=== PATIENT | male | born 1975 | race Caucasian/White ===

== ENCOUNTER 2021-06-29 09:15 | Outpatient (RCR) | payer OTHER, SELFPAY ==
[2021-06-07 08:57] VITALS: BMI 38.4
[2021-06-07 09:08] VITALS: BMI 38.4
== END 2021-07-07 15:14 | disposition home or self-care (01) ==
LOC: ANHDMC 09:15
PROVIDERS: PCP Family Medicine; Visit Provider Family Medicine
DX: E11.9 Type 2 diabetes mellitus without complications (principal); Z71.3 Dietary counseling and surveillance; Z71.89 Other specified counseling
CPT/HCPCS: 97802; G0108

== ENCOUNTER 2021-12-01 08:57 | Outpatient (CLI) | payer OTHER, SELFPAY ==
[2021-12-01 20:06] LABS: Alanine Aminotransferase 33 U/L (6-50); Albumin Level 4.5 g/dL (3.5-5.1); Alkaline Phosphatase 76 U/L (38-126); Anion Gap 10 mmol/L (8-16); Aspartate Amino Transferase 46 U/L (17-59); Bilirubin,Total 0.5 mg/dL (0.2-1.3); Blood Urea Nitrogen 22 mg/dL (9-20); Calcium 9.4 mg/dL (8.4-10.2); Carbon Dioxide 30 mmol/L (22-30); Chloride 98 mmol/L (98-107); Cholesterol 163 mg/dL (0-200); Estimated Glomerular Filt Rate > 60; Glucose 133 mg/dL (65-110); HDL Direct 33 mg/dL; Potassium 4.3 mmol/L (3.4-5.0); Sodium 138 mmol/L (137-145); Triglycerides 134 mg/dL (<150)
[2021-12-01 20:17] LABS: LDL Cholesterol Direct 97 mg/dL
[2021-12-01 20:29] LABS: Hemoglobin A1C 6.8 % (<5.7)
[2021-12-01 21:35] LABS: Creatinine Urine 81.8 mg/dL
[2021-12-01 21:39] LABS: MALB Creatinine Ratio 15.6 mg/g (0-30); Microalbumin Urine Random 12.8 mg/L (0-16.7)
== END 2021-12-01 08:58 | disposition home or self-care (01) ==
LOC: ANHGOSHLAB 08:58
PROVIDERS: PCP Family Medicine; Visit Provider Family Medicine
DX: E11.9 Type 2 diabetes mellitus without complications (principal)
CPT/HCPCS: 36415; 80053; 80061; 82043; 82607; 83036

== ENCOUNTER 2022-06-14 10:32 | Outpatient (CLI) | payer OTHER, SELFPAY ==
[2022-06-14 19:48] LABS: Alanine Aminotransferase 43 U/L (6-50); Albumin Level 4.2 g/dL (3.5-5.1); Alkaline Phosphatase 71 U/L (38-126); Anion Gap 6 mmol/L (8-16); Aspartate Amino Transferase 38 U/L (17-59); Bilirubin,Total 0.6 mg/dL (0.2-1.3); Blood Urea Nitrogen 16 mg/dL (9-20); Calcium 8.7 mg/dL (8.4-10.2); Carbon Dioxide 30 mmol/L (22-30); Chloride 101 mmol/L (98-107); Cholesterol 188 mg/dL (0-200); Estimated Glomerular Filt Rate > 60; Glucose 123 mg/dL (65-110); HDL Direct 28 mg/dL; Potassium 4.3 mmol/L (3.4-5.0); Sodium 137 mmol/L (137-145); Triglycerides 172 mg/dL (<150)
[2022-06-14 19:58] LABS: LDL Cholesterol Direct 120 mg/dL
== END 2022-06-14 10:33 | disposition home or self-care (01) ==
LOC: ANHGOSHLAB 10:33
PROVIDERS: PCP Family Medicine; Visit Provider Family Medicine
DX: B35.1 Tinea unguium (principal); E11.9 Type 2 diabetes mellitus without complications
CPT/HCPCS: 36415; 80053; 80061; 82607; 83036

== ENCOUNTER 2022-11-09 09:16 | Outpatient (CLI) | payer OTHER, SELFPAY ==
[2022-11-09 19:14] LABS: Alanine Aminotransferase 36 U/L (6-50); Alkaline Phosphatase 82 U/L (38-126); Anion Gap 7 mmol/L (8-16); Aspartate Amino Transferase 30 U/L (17-59); Bilirubin,Total 0.3 mg/dL (0.2-1.3); Blood Urea Nitrogen 18 mg/dL (9-20); Calcium 8.8 mg/dL (8.4-10.2); Carbon Dioxide 28 mmol/L (22-30); Chloride 104 mmol/L (98-107); Cholesterol 185 mg/dL (0-200); Estimated Glomerular Filt Rate > 60; Glucose 145 mg/dL (65-110); HDL Direct 30 mg/dL; Potassium 4.1 mmol/L (3.4-5.0); Sodium 139 mmol/L (137-145); Triglycerides 131 mg/dL (<150)
[2022-11-09 19:24] LABS: LDL Cholesterol Direct 115 mg/dL
[2022-11-09 20:12] LABS: Hemoglobin A1C 7.6 % (<5.7)
== END 2022-11-09 09:17 | disposition home or self-care (01) ==
LOC: ANHGOSHLAB 09:22
PROVIDERS: PCP Family Medicine; Visit Provider Physician Assistant
DX: E11.42 Type 2 diabetes mellitus with diabetic polyneuropathy (principal); I10 Essential (primary) hypertension; E66.01 Morbid (severe) obesity due to excess calories; Z68.39 Body mass index [BMI] 39.0-39.9, adult
CPT/HCPCS: 36415; 80053; 80061; 83036

== ENCOUNTER 2023-03-28 09:38 | Outpatient (CLI) | payer OTHER, SELFPAY ==
[2023-03-28 15:18] LABS: Alanine Aminotransferase 63 U/L (6-50); Albumin Level 4.6 g/dL (3.5-5.1); Alkaline Phosphatase 87 U/L (38-126); Anion Gap 17 mmol/L (8-16); Aspartate Amino Transferase 68 U/L (17-59); Bilirubin,Total 0.6 mg/dL (0.2-1.3); Blood Urea Nitrogen 16 mg/dL (9-20); Calcium 9.4 mg/dL (8.4-10.2); Carbon Dioxide 19 mmol/L (22-30); Chloride 104 mmol/L (98-107); Cholesterol 194 mg/dL (0-200); Estimated Glomerular Filt Rate > 60; Glucose 156 mg/dL (65-110); HDL Direct 32 mg/dL; Sodium 140 mmol/L (137-145); Triglycerides 156 mg/dL (<150)
[2023-03-28 15:28] LABS: LDL Cholesterol Direct 119 mg/dL
[2023-03-28 17:22] LABS: Creatinine Urine 117.2 mg/dL
[2023-03-28 17:32] LABS: MALB Creatinine Ratio 54.3 mg/g (0-30); Microalbumin Urine Random 63.6 mg/L (0-16.7)
[2023-03-28 18:00] LABS: Hemoglobin A1C 8.1 % (<5.7)
== END 2023-03-28 09:39 | disposition home or self-care (01) ==
LOC: ANHGOSHLAB 09:39
PROVIDERS: PCP Family Medicine; Visit Provider Family Medicine
DX: E11.59 Type 2 diabetes mellitus with other circulatory complications (principal); E11.69 Type 2 diabetes mellitus with other specified complication; E66.9 Obesity, unspecified; I15.2 Hypertension secondary to endocrine disorders; E11.42 Type 2 diabetes mellitus with diabetic polyneuropathy; E66.01 Morbid (severe) obesity due to excess calories; I10 Essential (primary) hypertension
CPT/HCPCS: 36415; 80053; 80061; 82043; 82607; 83036; 84443

== ENCOUNTER 2023-10-03 09:39 | Outpatient (CLI) | payer OTHER, SELFPAY ==
[2023-10-03 23:43] LABS: Alanine Aminotransferase 50 U/L (6-50); Albumin Level 4.4 g/dL (3.5-5.1); Alkaline Phosphatase 67 U/L (38-126); Anion Gap 7 mmol/L (4-12); Aspartate Amino Transferase 48 U/L (17-59); Bilirubin,Total 0.7 mg/dL (0.2-1.3); Blood Urea Nitrogen 16 mg/dL (9-20); Calcium 9.2 mg/dL (8.4-10.2); Carbon Dioxide 26 mmol/L (22-30); Chloride 104 mmol/L (98-107); Cholesterol 180 mg/dL (0-200); Estimated Glomerular Filt Rate > 60; Glucose 128 mg/dL (65-110); HDL Direct 32 mg/dL; Potassium 4.3 mmol/L (3.4-5.0); Sodium 137 mmol/L (137-145); Triglycerides 155 mg/dL (<150)
[2023-10-03 23:53] LABS: LDL Cholesterol Direct 114 mg/dL
[2023-10-04 01:28] LABS: Hemoglobin A1C 7.3 % (<5.7)
[2023-10-04 13:13] LABS: Creatinine Urine 81.4 mg/dL
[2023-10-04 13:26] LABS: MALB Creatinine Ratio < 7.4 mg/g (0-30); Microalbumin Urine Random < 6.0 mg/L (0-16.7)
== END 2023-10-03 09:40 | disposition home or self-care (01) ==
LOC: ANHGOSHLAB 09:40
PROVIDERS: PCP Family Medicine; Visit Provider Family Medicine
DX: I15.2 Hypertension secondary to endocrine disorders (principal); E66.9 Obesity, unspecified; E11.59 Type 2 diabetes mellitus with other circulatory complications; E11.69 Type 2 diabetes mellitus with other specified complication
CPT/HCPCS: 36415; 80053; 80061; 82043; 82607; 83036

== ENCOUNTER 2024-04-08 08:33 | Outpatient (CLI) | payer OTHER, SELFPAY ==
[2024-04-08 13:16] LABS: Alanine Aminotransferase 44 U/L (6-50); Albumin Level 4.2 g/dL (3.5-5.1); Alkaline Phosphatase 85 U/L (38-126); Anion Gap 7 mmol/L (4-12); Aspartate Amino Transferase 60 U/L (17-59); Bilirubin,Total 0.5 mg/dL (0.2-1.3); Blood Urea Nitrogen 18 mg/dL (9-20); Calcium 9.2 mg/dL (8.4-10.2); Carbon Dioxide 26 mmol/L (22-30); Chloride 108 mmol/L (98-107); Cholesterol 168 mg/dL (0-200); Estimated Glomerular Filt Rate > 60; Glucose 133 mg/dL (65-110); HDL Direct 37 mg/dL; Potassium 4.3 mmol/L (3.4-5.0); Sodium 141 mmol/L (137-145); Triglycerides 98 mg/dL (<150)
[2024-04-08 13:29] LABS: LDL Cholesterol Direct 100 mg/dL
[2024-04-08 18:03] LABS: Hemoglobin A1C 8.1 % (<5.7)
== END 2024-04-08 08:34 | disposition home or self-care (01) ==
LOC: ANHGOSHLAB 08:34
PROVIDERS: PCP Family Medicine; Visit Provider Family Medicine
DX: E11.9 Type 2 diabetes mellitus without complications (principal)
CPT/HCPCS: 36415; 80053; 80061; 82607; 83036